=== PATIENT | female | born 1940 | race Caucasian/White ===

== ENCOUNTER → 2016-08-27 | Outpatient (CLI) | payer BC ==
[~2016-08-27] MED LIST: ASPI1TAB PO; LEVO75TA57 PO; PRV20T PO; SPIR1TAB PO
--- OUTSIDE RECORDS SUMMARY | 2016-08-27 14:54 | XMS REPORT | Continuity of Care Document ---
Author Author [facility] Organization [facility] Address Unknown Phone Unavailable Allergies Active Description Code Type Severity Reaction Onset Reported/Identified Relationship to Patient Clinical Status Yes MUCINEX MUCINEX Mild N/A 08/28/2010 Yes Penicillins [id number] Drug Allergy Unknown N/A 08/28/2010 Medications Problems Date Dx Coded Attending Type Code Diagnosis Diagnosed By 08/03/2014 JOSUÉ CALERO MD Ot V76.12 Procedures Results Encounters ACCT No. Visit Date/Time Discharge Status Pt. Type Provider Facility Loc./Unit Complaint [id number] 07/13/2014 13:46:00 2014 23:59:59 CLS Outpatient JOSUÉ CALERO MD [facility] RAD [id number] 01/10/2013 12:15:00 2012 23:59:59 CLS Outpatient [id number] 08/27/2016 15:00:00 PEN Preadmit JOSUÉ CALERO MD [facility] RAD SCREENING
--- NOTE | 2016-08-27 18:42 | Diagnostic Imaging Report ---
Digital mammogram bilateral screening. This study was compared to the prior exams of 07/13/2014, 12/03/2011, and 09/12/2010. At this time, there are no current complaints. The current study was also evaluated with a Computer Aided Detection (CAD) system. FINDINGS: The fibroglandular tissue in both breasts is heterogeneously dense. This does limit the sensitivity of this exam. Overall, there does not appear to have been any significant change when compared to the prior study. No primary or secondary sign of malignancy is noted. IMPRESSION: There is no radiographic evidence for malignancy. ACR BI-RADS Category 2: Benign findings. Result letter will be mailed to the patient. Note: At least 10% of breast cancer is not imaged by mammography. Dictated by: Dictated on workstation # [id number]
== END ==
LOC: RAD 14:51
PROVIDERS: ATTEND Internal Medicine
DX: Z12.31 Encounter for screening mammogram for malignant neoplasm of breast (principal)
CPT/HCPCS: 77067

== ENCOUNTER 2017-04-07 13:22 | Inpatient (IN) | payer BC, MEDICARE ==
[~2017-04-07] VITALS: Ht 154.9 cm; Wt 42.6 kg
[2017-04-07] MEDS ORDERED: ONDANSETRON 4 MG/2 ML (SDV) Z0FRAN ONE (13:42)
[2017-04-07] MEDS ORDERED: NS IV 1000 ML 1,000 ML ONE ×2 (13:42→19:12)
[2017-04-07] MEDS ORDERED: ASPIRIN 81 MG CHEW (CHILDREN'S ASA) PO ONE ×2 (13:45)
[2017-04-07] MEDS ORDERED: NS IV 1000 ML 1,000 ML IV ONE (13:47)
--- NOTE | 2017-04-07 13:49 | ED Abdominal Pain ---
General Chief Complaint: Abdominal/GI Problems Stated Complaint: NAUSEA/FAINT/CHEST AND STOMACH DISCOMFORT Nursing Triage Note: C/O FEELING GENERALLY UNWELL X10 DAYS WITH NAUSEA, DENIES V/D TODAY. SAW PCP YESTERDAY. STARTED ON ZOFRAN AND CIPRO. Sepsis Screen: No Definite Risk Source of Information: Patient Exam Limitations: No Limitations History of Present Illness Time Seen By Provider: 13:32 Initial Comments Here with report of 10 days of feeling weak with vomiting and occasional diarrhea. This is declining to just nausea today. Also describes of dullness in her left chest. This is been going on intermittently for a few days. Seen by provider yesterday and started on Zofran and an antibiotic. Unsure what the antibiotic was for. Overall states that she just does not feel well and wants to feel better. Timing/Duration: 1 Week, Changing Over Time, Getting Worse Severity/Quality: Moderate, Other (nausea) Location: Generalized Abdomen Radiation: No Radiation Modifying Factors: Worsens With Eating Associated Symptoms: No Back Pain, Chest Pain, No Fever/Chills, Fatigue, Nausea /Vomiting, No Shortness of Air, Weakness Allergies and Home Medications Allergies Coded Allergies: Penicillins (Unverified Allergy, Unknown, 04/07/17) Uncoded Allergies: MUCINEX (Allergy, Mild, 08/28/10) Home Medications Aspirin/Acetaminophen/Caffeine 1 Each Tablet, 2 TAB PO DAILY, (Reported) Levothyroxine Sodium 75 Mcg Tablet, 1 EACH PO DAILY, (Reported) Pravastatin Sodium 20 Mg Tablet, 1 TAB PO DAILY, (Reported) Spironolact/Hydrochlorothiazid 1 Each Tablet, 1 EACH PO DAILY, (Reported) Review of Systems Constitutional: see HPI, No chills, No fever, malaise EENTM: No Symptoms Reported Respiratory: Cough, Denies Wheezing Cardiovascular: See HPI, Chest Pain, Denies Edema Gastrointestinal: See HPI, Nausea Genitourinary: No Symptoms Reported Musculoskeletal: no symptoms reported Skin: no symptoms reported Psychiatric/Neurological: See HPI All Other Systems Reviewed Negative Unless Noted: Yes Past Kujpdhj-Kuricz-Kpycml Hx Patient Social History Alcohol Use: Denies Use Recreational Drug Use: No Smoking Status: Never a Smoker Recent Foreign Travel: No Contact w/Someone Who Travel: No Recent Infectious Disease Expo: No Recent Hopitalizations: No Surgeries History of Surgeries: Yes Surgeries: Hysterectomy Cardiovascular History of Cardiac Disorders: No Neurological History of Neurological Disord: No Gastrointestinal History of Gastrointestinal Di: No Reviewed Nursing Assessment Reviewed/Agree w Nursing PMH: Yes Family Medical History Significant Family History: No Pertinent Family Hx Physical Exam Vital Signs VS - Last 72 Hours, by Label 04/07/17 04/07/17 13:26 13:35 Temp 98.3 Pulse 83 76 77 85 Resp 16 B/P (MAP) 155/74 Pulse Ox 98 Capillary Refill : Less Than 3 Seconds General Appearance: WD/WN HEENT: PERRL/EOMI, pharynx normal Neck: full range of motion, supple Respiratory: lungs clear, normal breath sounds Cardiovascular: regular rate, rhythm, no murmur Peripheral Pulses: 2+ Dorsalis Pedis (R), 2+ Left Dors-Pedis (L), 2+ Radial Pulses (R), 2+ Radial Pulses (L) Gastrointestinal: non tender, soft Extremities: non-tender, normal inspection Back: normal inspection, no CVA tenderness, no vertebral tenderness Neurologic/Psychiatric: alert, oriented x 3 Skin: normal color, warm/dry Focused Exam Evaluation Lactate Level Laboratory Tests 04/07/17 16:45: Lactic Acid Level Laboratory Tests Test 04/07/17 16:45 Progress/Results/Core Measures Results/Orders Lab Results Laboratory Tests Test 04/07/17 13:40 04/07/17 14:45 04/07/17 16:45 Range/Units White Blood Count 5.5 4.3-11.0 10^3/uL Red Blood Count 4.46 4.35-5.85 10^6/uL Hemoglobin 13.4 11.5-16.0 G/DL Hematocrit 41 35-52 % Mean Corpuscular Volume 91 80-99 FL Mean Corpuscular Hemoglobin 30 25-34 PG Mean Corpuscular Hemoglobin Concent 33 32-36 G/DL Red Cell Distribution Width 12.9 10.0-14.5 % Platelet Count 222 130-400 10^3/uL Mean Platelet Volume 10.5 H 7.4-10.4 FL Neutrophils (%) (Auto) 50 42-75 % Lymphocytes (%) (Auto) 33 12-44 % Monocytes (%) (Auto) 14 H 0-12 % Eosinophils (%) (Auto) 1 0-10 % Basophils (%) (Auto) 3 0-10 % Neutrophils # (Auto) 2.8 1.8-7.8 X 10^3 Lymphocytes # (Auto) 1.8 1.0-4.0 X 10^3 Monocytes # (Auto) 0.8 0.0-1.0 X 10^3 Eosinophils # (Auto) 0.0 0.0-0.3 10^3/uL Basophils # (Auto) 0.2 H 0.0-0.1 10^3/uL Prothrombin Time 12.8 12.2-14.7 SEC INR Comment 1.0 0.8-1.4 Activated Partial Thromboplast Time 27 24-35 SEC D-Dimer 1.59 H 0.00-0.49 UG/ML Sodium Level 135 135-145 MMOL/L Potassium Level 4.1 3.6-5.0 MMOL/L Chloride Level 101 98-107 MMOL/L Carbon Dioxide Level 23 21-32 MMOL/L Anion Gap 11 5-14 MMOL/L Blood Urea Nitrogen 23 H 7-18 MG/DL Creatinine 0.95 0.60-1.30 MG/DL Estimat Glomerular Filtration Rate 57 BUN/Creatinine Ratio 24 Glucose Level 100 70-105 MG/DL Calcium Level 9.1 8.5-10.1 MG/DL Magnesium Level 2.1 1.8-2.4 MG/DL Total Bilirubin 0.7 0.1-1.0 MG/DL Aspartate Amino Transf (AST/SGOT) 33 5-34 U/L Alanine Aminotransferase (ALT/SGPT) 32 0-55 U/L Alkaline Phosphatase 77 40-136 U/L Myoglobin 55.4 10.0-92.0 NG/ML Troponin I < 0.30 <0.30 NG/ML Total Protein 7.4 6.4-8.2 GM/DL Albumin 4.0 3.2-4.5 GM/DL Amylase Level 52 25-125 U/L Lipase 38 8-78 U/L Urine Color YELLOW Urine Clarity CLEAR Urine pH 5 5-9 Urine Specific [place] 1.020 1.016-1.022 Urine Protein 2+ H NEGATIVE Urine Glucose (UA) NEGATIVE NEGATIVE Urine Ketones 4+ H NEGATIVE Urine Nitrite NEGATIVE NEGATIVE Urine Bilirubin NEGATIVE NEGATIVE Urine Urobilinogen 1 NORMAL MG/DL Urine Leukocyte Esterase 1+ H NEGATIVE Urine RBC (Auto) 2+ H NEGATIVE Urine RBC 0-2 /HPF Urine WBC 0-2 /HPF Urine Squamous Epithelial Cells 0-2 /HPF Urine Crystals NONE /LPF Urine Bacteria NEGATIVE /HPF Urine Casts PRESENT /LPF Urine Granular Casts 2-5 H /LPF Urine Mucus NEGATIVE /LPF Urine Culture Indicated NO My Orders Orders - ANDRIA VIVAS MD Cbc With Automated Diff (04/07/17 13:40) Magnesium (04/07/17 13:40) Chest 1 View, Ap/Pa Only (04/07/17 13:40) Ekg Tracing (04/07/17 13:40) Cardiac Profile 1 (04/07/17 13:40) Comprehensive Metabolic Panel (04/07/17 13:40) Myoglobin Serum (04/07/17 13:40) Protime With Inr (04/07/17 13:40) Partial Thromboplastin Time (04/07/17 13:40) O2 (04/07/17 13:40) Monitor-Rhythm Ecg Trace Only (04/07/17 13:40) Lipid Panel (04/08/17 06:00) Aspirin Chewable Tablet (Baby Aspirin Ch (04/07/17 13:45) Saline Lock/Iv-Start (04/07/17 13:40) Lipase (04/07/17 13:40) Amylase (04/07/17 13:40) Aspirin Chewable Tablet (Baby Aspirin Ch (04/07/17 13:45) Ns Iv 1000 Ml (Sodium Chloride 0.9%) (04/07/17 13:47) Ondansetron Injection (Zofran Injectio (04/07/17 14:00) Ns Iv 1000 Ml (Sodium Chloride 0.9%) (04/07/17 13:42) Ondansetron Injection (Zofran Injectio (04/07/17 13:42) Ua Culture If Indicated (04/07/17 14:09) Fibrin Degradation Products (04/07/17 14:33) Ct Angio Chest W (04/07/17 15:00) Iohexol Injection (Omnipaque 350 Mg/Ml 1 (04/07/17 15:15) Ns (Ivpb) (Sodium Chloride 0.9% Ivpb Bag (04/07/17 15:15) Ceftriaxone Injection (Rocephin Injectio (04/07/17 16:45) Lactic Acid Analyzer (04/07/17 16:39) Blood Culture (04/07/17 16:39) Medications Given in ED Current Medications Medications Dose Ordered Sig/Sari Route Start Time Stop Time Status Last Admin Dose Admin Aspirin 324 mg ONCE ONCE PO 04/07/17 13:45 04/07/17 13:46 DC 04/07/17 13:56 324 MG Ceftriaxone Sodium 1000 mg/ Sodium Chloride 50 ml @ 100 mls/hr ONCE ONCE IV 04/07/17 16:45 04/07/17 17:14 04/07/17 16:55 100 MLS/HR Iohexol 125 ml ONCE ONCE IV 04/07/17 15:15 04/07/17 15:16 DC 04/07/17 15:32 95 ML Ondansetron HCl 4 mg STK-MED ONCE .ROUTE 04/07/17 13:42 04/07/17 13:51 DC 04/07/17 13:56 4 MG Sodium Chloride 100 ml ONCE ONCE IV 04/07/17 15:15 04/07/17 15:16 DC 04/07/17 15:32 80 ML Sodium Chloride 1,000 ml @ ud STK-MED ONCE .ROUTE 04/07/17 13:42 04/07/17 13:51 DC 04/07/17 13:56 1,000 MLS/HR Vital Signs/I&O Vital Sign - Last 12Hours 04/07/17 04/07/17 13:26 13:35 Temp 98.3 Pulse 83 76 77 85 Resp 16 B/P (MAP) 155/74 Pulse Ox 98 Intake and Output 04/08/17 00:00 Intake Total 1000 ml Balance 1000 ml Blood Pressure Mean: 101 Progress Note : Progress Note Seen and evaluated. IV, labs, EKG and chest x-ray ordered. ASA 324 mg by mouth. Zofran 4 mg IV and normal saline 1 L bolus ordered. Monitor patient. D -dimer added. Monitor patient. D-dimer positive. CT angiogram chest ordered. This was positive for pneumonia. Given patient's recent several day bout of nausea and vomiting as well as failure of outpatient antibiotics with Levaquin, patient will require admission to the hospital. I did discuss the case with Dr. STANLEY, on-call for Dr. Alas. He accepts patient for admission, inpatient status. We will repeat cardiac enzymes overnight. We will initiate blood cultures and lactic acid in initiate Rocephin 1 g IV afterwards. All findings concerning discussed with patient who agrees with plan. ECG Initial ECG Impression Date: Apr 07, 2017 Initial ECG Impression Time: 13:49 Initial ECG Rate: 70 Initial ECG Rhythm: Normal Sinus Initial ECG Comparisson: No Previous ECG Available Comment Sinus rhythm with right atrial abnormality. Question of pericarditis due to sloping baseline. No evidence of ST elevation MS. No previous available for comparison. Interpreted by me. Diagnostic Imaging Diagonstic Imaging: Xray Plain Films/CT/US/NM/MRI: chest [facility] [place], [place] NAME: DONATO POSADAS [facility] REC#: [id number] PT STATUS: REG ER : 1940 PHYSICIAN: ANDRIA VIVAS MD ADMIT DATE: 04/07/17/ER Draft Date of Exam:04/07/17 CHEST 1 VIEW, AP/PA ONLY INDICATION: Chest pain x 5 days. EXAMINATION: Portable chest at 2:12 PM. FINDINGS: The heart size and pulmonary vascularity are normal. There is a suspected 17 mm nodule in the right mid lateral chest. There is overlapping of the right anterior fourth rib, right posterior seventh rib, scapula, and a section of tubing. It is possible the density could just be artifactual. The lungs are otherwise clear. There are no effusions or pneumothoraces. IMPRESSION: Questionable nodule in the right upper lobe. A repeat study with slightly different positioning might prove useful. Dictated on workstation # [id number] Dict: 04/07/17 1416 Trans: 04/07/17 [employer] [id number] Interpreted by: ANDRIA HELTON MD Electronically signed by: Diagonstic Imaging: CT Plain Films/CT/US/NM/MRI: chest Comments [facility] [place] [place] NAME: DONATO POSADAS [facility] REC#: [id number] PT STATUS: REG ER : 1940 PHYSICIAN: ANDRIA VIVAS MD ADMIT DATE: 04/07/17/ER Draft Date of Exam:04/07/17 CT ANGIO CHEST W PROCEDURE: CT angiography of the chest with contrast. TECHNIQUE: Multiple contiguous axial images were obtained through the chest after uneventful bolus administration of intravenous contrast. Reconstructed CTA MIP acquisitions were also performed. INDICATION: Chest pressure, started 5 days ago. 90 mL of Omnipaque 350 was administered intravenously. FINDINGS: The pulmonary arteries are well opacified with no filling defects seen to suggest pulmonary embolism. The thoracic aorta demonstrate ectasia of the ascending aorta measuring up to 3.8 cm in caliber at mid ascending level. The aortic root, the arch and the descending aorta segments appear unremarkable. No dissection. The heart size is normal. There is no pericardial or pleural effusion. There is no mediastinal lymphadenopathy. There is mildly enlarged right hilar lymph node measuring 1 cm in size. Subcentimeter nonspecific left hilar lymph node is seen. No axillary lymphadenopathy is noted. The lungs demonstrate a subsegmental area of consolidation in the lower lateral aspect of the right upper lobe, likely related to inflammatory or infectious pneumonitis. There is otherwise no significant consolidation, mass or suspicious nodule seen. There is right convexity scoliotic curvature in the thoracic spine seen. Lower thoracic spine degenerative changes are noted. Sections in the upper abdomen appear grossly unremarkable. IMPRESSION: 1. Subsegmental area of consolidation in the lateral lower aspect of the right upper lobe is likely related to infectious or inflammatory pneumonia. 2. 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 Dictated on workstation # [id number] Dict: 04/07/17 1552 Trans: 04/07/17 1612 [facility] [id number] Interpreted by: RONAK LUND MD Electronically signed by: Departure Communication (Admissions) Time/Spoke to Admitting Phy: 16:33 Impression Impression: Primary Impression: Right upper lobe pneumonia Qualified Codes: J18.1 - Lobar pneumonia, unspecified organism Additional Impressions: Chest pain Qualified Codes: R07.9 - Chest pain, unspecified Nausea and vomiting Qualified Codes: R11.2 - Nausea with vomiting, unspecified Disposition: ADMITTED INPATIENT Condition: Stable Admissions Decision to Admit Reason: Admit from ER (General) Decision to Admit/Date: Apr 07, 2017 Time/Decision to Admit Time: 16:33 Departure-Patient Inst. Referrals: JOSUÉ ALAS MD (PCP/Family) Primary Care Physician ANDRIA VIVAS MD Apr 07, 2017 13:49
[2017-04-07 13:51] LABS: BASOPHILS # (AUTO) 0.2 10^3/uL (0.0-0.1); BASOPHILS % (AUTO) 3 % (0-10); EOSINOPHILS % (AUTO) 1 % (0-10); LYMPHOCYTES # (AUTO) 1.8 X 10^3 (1.0-4.0); LYMPHOCYTES % (AUTO) 33 % (12-44); MEAN CORPUSCULAR HEMOGLOBIN 30 PG (25-34); MEAN CORPUSCULAR HGB CONC 33 G/DL (32-36); MEAN CORPUSCULAR VOLUME 91 FL (80-99); MEAN PLATELET VOLUME 10.5 FL (7.4-10.4); MONOCYTES # (AUTO) 0.8 X 10^3 (0.0-1.0); MONOCYTES % (AUTO) 14 % (0-12); NEUTROPHILS # (AUTO) 2.8 X 10^3 (1.8-7.8); NEUTROPHILS % (AUTO) 50 % (42-75); PLATELET COUNT 222 10^3/uL (130-400); RED BLOOD COUNT 4.46 10^6/uL (4.35-5.85); RED CELL DISTRIBUTION WIDTH 12.9 % (10.0-14.5); WHITE BLOOD COUNT 5.5 10^3/uL (4.3-11.0)
[2017-04-07] MEDS ORDERED: ONDANSETRON 4 MG/2 ML (SDV) Z0FRAN IVP ONE (14:00)
[2017-04-07 14:03] LABS: PROTHROMBIN TIME PATIENT 12.8 SEC (12.2-14.7)
[2017-04-07 14:12] LABS: ALANINE AMINOTRANSFERASE 32 U/L (0-55); AMYLASE 52 U/L (25-125); ANION GAP 11 MMOL/L (5-14); ASPARTATE AMINO TRANSFERASE 33 U/L (5-34); BILIRUBIN,TOTAL 0.7 MG/DL (0.1-1.0); BLOOD UREA NITROGEN 23 MG/DL (7-18); BUN/CREATININE RATIO 24; CALCIUM 9.1 MG/DL (8.5-10.1); CARBON DIOXIDE 23 MMOL/L (21-32); CHLORIDE 101 MMOL/L (98-107); CREATININE SERUM 0.95 MG/DL (0.60-1.30); GFR ESTIMATED 57; GLUCOSE 100 MG/DL (70-105); LIPASE 38 U/L (8-78); MAGNESIUM 2.1 MG/DL (1.8-2.4); POTASSIUM 4.1 MMOL/L (3.6-5.0); SODIUM 135 MMOL/L (135-145); TOTAL PROTEIN 7.4 GM/DL (6.4-8.2)
[2017-04-07 14:18] LABS: MYOGLOBIN SERUM 55.4 NG/ML (10.0-92.0)
--- NOTE | 2017-04-07 14:23 | Diagnostic Imaging Report ---
INDICATION: Chest pain x 5 days. EXAMINATION: Portable chest at 2:12 PM. FINDINGS: The heart size and pulmonary vascularity are normal. There is a suspected 17 mm nodule in the right mid lateral chest. There is overlapping of the right anterior fourth rib, right posterior seventh rib, scapula, and a section of tubing. It is possible the density could just be artifactual. The lungs are otherwise clear. There are no effusions or pneumothoraces. IMPRESSION: Questionable nodule in the right upper lobe. A repeat study with slightly different positioning might prove useful. Dictated by: Dictated on workstation # [id number]
[2017-04-07 14:58] LABS: BILIRUBIN,URINE NEGATIVE (NEGATIVE); KETONES,URINE 4+ (NEGATIVE); LEUKOCYTE ESTERASE ,URINE 1+ (NEGATIVE); NITRITE,URINE NEGATIVE (NEGATIVE); PH,URINE 5 (5-9); PROTEIN,URINE 2+ (NEGATIVE); UROBILINOGEN,URINE 1 MG/DL (NORMAL)
[2017-04-07 15:06] LABS: SQUAMOUS EPITHELIAL CELL,UR 0-2 /HPF; WBC,URINE 0-2 /HPF
[2017-04-07] MEDS ORDERED: IOHEXOL 350 MG/ML 150 ML (OMNIPAQUE 350) VIAL IV ONE (15:15)
[2017-04-07] MEDS ORDERED: NS 100 ML (IVPB) BAG IV ONE (15:15)
--- NOTE | 2017-04-07 16:12 | Diagnostic Imaging Report ---
PROCEDURE: CT angiography of the chest with contrast. TECHNIQUE: Multiple contiguous axial images were obtained through the chest after uneventful bolus administration of intravenous contrast. Reconstructed CTA MIP acquisitions were also performed. INDICATION: Chest pressure, started 5 days ago. 90 mL of Omnipaque 350 was administered intravenously. FINDINGS: The pulmonary arteries are well opacified with no filling defects seen to suggest pulmonary embolism. The thoracic aorta demonstrate ectasia of the ascending aorta measuring up to 3.8 cm in caliber at mid ascending level. The aortic root, the arch and the descending aorta segments appear unremarkable. No dissection. The heart size is normal. There is no pericardial or pleural effusion. There is no mediastinal lymphadenopathy. There is mildly enlarged right hilar lymph node measuring 1 cm in size. Subcentimeter nonspecific left hilar lymph node is seen. No axillary lymphadenopathy is noted. The lungs demonstrate a subsegmental area of consolidation in the lower lateral aspect of the right upper lobe, likely related to inflammatory or infectious pneumonitis. There is otherwise no significant consolidation, mass or suspicious nodule seen. There is right convexity scoliotic curvature in the thoracic spine seen. Lower thoracic spine degenerative changes are noted. Sections in the upper abdomen appear grossly unremarkable. IMPRESSION: 1. Subsegmental area of consolidation in the lateral lower aspect of the right upper lobe is likely related to infectious or inflammatory pneumonia. 2. 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 Dictated by: Dictated on workstation # [id number]
[2017-04-07] MEDS ORDERED: cefTRIAXone INJECTION 1,000 MG in NS (IVPB) 50 ML IV ONE (16:45)
[2017-04-07] MEDS ORDERED: NS IV 1000 ML 1,000 ML IV SCH (19:45)
[2017-04-07] MEDS ORDERED: ONDANSETRON 4 MG/2 ML (SDV) Z0FRAN IVP PRN (19:45)
[2017-04-07] MEDS ORDERED: CATHETER FLUSH 10 ML SYR IV PRN (19:45)
[2017-04-07] MEDS ORDERED: AZITHROMYCIN 500 MG/NS 250 ML IVPB IV NR ×2 (20:00)
[2017-04-07] MEDS ORDERED: INFLUENZA TRIvalent 2017-2018 0.5 ML/45 MCG SYR IM ONE (20:15)
[2017-04-07 20:53] VITALS: BP 147/72
[2017-04-07] MEDS ORDERED: CATHETER FLUSH 10 ML SYR IV SCH (22:00)
[2017-04-08 00:04] VITALS: BP 155/74
[2017-04-08 00:11] VITALS: BP 117/58
[2017-04-08] MEDS ORDERED: RT-ALBUTEROL/IPRATROPIUM 3 ML (DUONEB) VIAL INH PRN (00:15)
[2017-04-08 04:23] VITALS: BP 128/60
[2017-04-08 06:12] LABS: BASOPHILS # (AUTO) 0.1 10^3/uL (0.0-0.1); BASOPHILS % (AUTO) 3 % (0-10); EOSINOPHILS # (AUTO) 0.1 10^3/uL (0.0-0.3); EOSINOPHILS % (AUTO) 3 % (0-10); LYMPHOCYTES # (AUTO) 1.1 X 10^3 (1.0-4.0); LYMPHOCYTES % (AUTO) 36 % (12-44); MEAN CORPUSCULAR HEMOGLOBIN 30 PG (25-34); MEAN CORPUSCULAR HGB CONC 33 G/DL (32-36); MEAN CORPUSCULAR VOLUME 92 FL (80-99); MEAN PLATELET VOLUME 10.5 FL (7.4-10.4); MONOCYTES # (AUTO) 0.5 X 10^3 (0.0-1.0); MONOCYTES % (AUTO) 15 % (0-12); NEUTROPHILS # (AUTO) 1.4 X 10^3 (1.8-7.8); NEUTROPHILS % (AUTO) 44 % (42-75); PLATELET COUNT 194 10^3/uL (130-400); RED BLOOD COUNT 3.63 10^6/uL (4.35-5.85); RED CELL DISTRIBUTION WIDTH 12.8 % (10.0-14.5); WHITE BLOOD COUNT 3.1 10^3/uL (4.3-11.0)
[2017-04-08 06:30] LABS: ALANINE AMINOTRANSFERASE 23 U/L (0-55); ANION GAP 9 MMOL/L (5-14); ASPARTATE AMINO TRANSFERASE 23 U/L (5-34); BLOOD UREA NITROGEN 16 MG/DL (7-18); BUN/CREATININE RATIO 26; CARBON DIOXIDE 21 MMOL/L (21-32); CHLORIDE 109 MMOL/L (98-107); CREATININE SERUM 0.62 MG/DL (0.60-1.30); GFR ESTIMATED > 60; GLUCOSE 74 MG/DL (70-105); POTASSIUM 3.7 MMOL/L (3.6-5.0); SODIUM 139 MMOL/L (135-145); TOTAL PROTEIN 5.2 GM/DL (6.4-8.2)
[2017-04-08 06:39] LABS: BILIRUBIN,TOTAL 0.4 MG/DL (0.1-1.0)
[2017-04-08 06:43] LABS: CHOLESTEROL 125 MG/DL (< 200); DIRECT LDL 76 MG/DL (1-129); TRIGLYCERIDES 87 MG/DL (<150); VLDL CHOLESTEROL 17 MG/DL (5-40)
[2017-04-08 07:36] VITALS: BP 139/60
[2017-04-08] MEDS ORDERED: ONDA4TAB11 PO (08:05)
[2017-04-08] MEDS ORDERED: ATOR10TA66 PO (08:05)
[2017-04-08] MEDS ORDERED: SPIR25TA3 PO (08:05)
[2017-04-08] MEDS ORDERED: LEVO500T80 PO (08:05)
[2017-04-08] MEDS ORDERED: LEVO75TA PO (08:05)
[2017-04-08] MEDS: ASPIRIN 81 MG CHEW (CHILDREN'S ASA) PO SCH (08:13)
[2017-04-08] MEDS: AZITHROMYCIN 250 MG TAB (ZITHROMAX) PO SCH (08:13)
[2017-04-08] MEDS ORDERED: ACET-2267 PO (08:34)
[2017-04-08] MEDS ORDERED: ASPIRIN 81 MG CHEW (CHILDREN'S ASA) PO SCH (09:00)
--- NOTE | 2017-04-08 11:34 | History & Physical-Hospitalist ---
HPI History of Present Illness: HPI/Chief Complaint CC: Chest pain due to pleurisy and pneumonia with dizziness HPI: This is a 76-year-old white female clinic patient of Dr. Calero the presented with a variety of complaints to the emergency room including abdominal pain that ultimately ended with CT angiogram because of elevated d- dimer and chest pain episode that revealed a pneumonia without evidence of hypoxia and fever other than an upper respiratory illness for the past 10 days. She reports that she has been very dizzy the last 10 days and overall not feeling up to walking around and feeling like she was going to pass out every time she stood up. She is placed on Rocephin broad-spectrum and. 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 Source: patient Exam Limitations: no limitations Date Seen 04/08/17 Time Seen by Provider: 10:00 Attending Physician Chester Brown MD PCP Michael Calero MD Referring Physician Date of Admission Apr 07, 2017 at 18:37 Home Medications & Allergies Home Medications Reviewed patient Home Medication Reconciliation Form Allergies Allergies Coded Allergies Penicillins (Unverified Allergy, Unknown, 04/07/17) Uncoded Allergies MUCINEX ( Allergy, Mild, 08/28/10) Past Irivvzb-Fptgcd-Mubbqk Hx Patient Social History Marrital Status: Employed/Student: employed ([employer]) Alcohol Use: Denies Use Recreational Drug Use: No Smoking Status: Never a Smoker Physical Abuse Screen: No Sexual Abuse: No Recent Foreign Travel: No Contact w/other who traveled: No Recent Hopitalizations: No Recent Infectious Disease Expo: No Seasonal Allergies Seasonal Allergies: No Surgeries Yes Hysterectomy Respiratory No Cardiovascular Yes (STOPPED BP MEDS [address] CALERO) Neurological No Genitourinary No Gastrointestinal No Musculoskeletal Yes Arthritis Endocrine History of Endocrine Disorders: Yes Endocrine Disorders: Hypothyroidsim HEENT History of HEENT Disorders: No Cancer No Psychosocial History of Psychiatric Problem: No Integumentary History of Skin or Integumenta: No Blood Transfusions History of Blood Disorders: No Reviewed Nursing Assessment Reviewed/Agree w Nursing PMH: Yes Family Medical History Significant Family History: No Pertinent Family Hx Family Hx: Completed stroke G8 BROTHER FH: bipolar disorder 19 FATHER FH: ovarian cancer 19 MOTHER Myocardial infarction 19 MOTHER G8 BROTHER Psychosocial problem G8 BROTHER Tuberculosis 19 FATHER Review of Systems Constitutional: see HPI, dizziness, weakness EENTM: no symptoms reported Respiratory: cough Cardiovascular: chest pain Gastrointestinal: no symptoms reported Genitourinary: no symptoms reported Musculoskeletal: no symptoms reported Skin: no symptoms reported Psychiatric/Neurological: Anxiety All Other Systems Reviewed Negative Unless Noted: Yes Physical Exam Physical Exam Vital Signs Vital Sign - Last 12Hours 04/07/17 04/07/17 13:26 20:53 Temp 98.3 Pulse 83 Resp 16 B/P (MAP) 155/74 Pulse Ox 98 O2 Delivery Room Air Capillary Refill : Less Than 3 Seconds General Appearance: No Apparent Distress, WD/WN, Chronically ill, Thin, Other ( frail) Eyes: Bilateral Eye Normal Inspection, Bilateral Eye PERRL HEENT: PERRL/EOMI, Normal ENT Inspection, Pharynx Normal Neck: Full Range of Motion, Normal Inspection, Non Tender, Supple, Carotid Bruit Respiratory: Chest Non Tender, Lungs Clear, No Accessory Muscle Use, No Respiratory Distress, Decreased Breath Sounds Cardiovascular: Regular Rate, Rhythm, No Edema, No Gallop, No JVD, No Murmur, Normal Peripheral Pulses Gastrointestinal: Normal Bowel Sounds, No Organomegaly, No Pulsatile Mass, Non Tender, Soft Back: Normal Inspection, No CVA Tenderness, No Vertebral Tenderness Extremity: Normal Capillary Refill, Normal Inspection, Normal Range of Motion, Non Tender, No Calf Tenderness, No Pedal Edema Neurologic/Psychiatric: Alert, Oriented x3, No Motor/Sensory Deficits, Normal Mood/Affect Skin: Normal Color, Warm/Dry Lymphatic: No Adenopathy Results Results/Procedures Lab Laboratory Tests 04/07/17 13:40 04/08/17 05:45 Assessment/Plan Admission Diagnosis Assessment: Pneumonia found on CT angiogram with cough and chest pain with pleurisy Severe weakness and dizziness at high risk for falls Mild dehydration placed on IV fluids from ER Hypothyroidism History of hypertension but off meds for several years per primary care provider Chronic arthritis pain Assessment and Plan Plan: Empiric antibiotics treatment for pneumonia Oxygen when necessary Nebs Physical therapy Check labs in a.m. Hep-locked IV fluid Ambulate Clinical Quality Measures DVT/VTE Risk/Contraindication: Risk Factor Score Per Nursin RFS Level Per Nursing on Admit: 4+=Very High LAURYN GONGORA DO Apr 08, 2017 11:34
[2017-04-08 11:57] VITALS: BP 115/56
--- NOTE | 2017-04-08 15:48 | Physical Therapy Evaluation ---
PT Evaluation-General Medical Diagnosis Admission Date Apr 07, 2017 at 18:37 Medical Diagnosis: pneumonia Onset Date: Apr 07, 2017 Therapy Diagnosis Therapy Diagnosis: weakness Height/Weight Height (Feet): 5 Height (Inches): 1.00 Weight (Pounds): 94 Weight (Ounces): 0.0 Precautions Precautions/Isolations: Fall Prevention, Standard Precautions Referral Physician: Gisel Recio DO Reason for Referral: Evaluation/Treatment Medical History Pertinent Medical History: Arthritis, Hypothroidism Additional Medical History Surgery: Hyserectomy Current History Pt had been feeling weak and nauseous for about 10 days, came in to PCP, admitted for pneumonia. Reviewed History: Yes Social History Home: Multilevel Current Living Status: Significant Other Entry Into Home: Stairs With Railing PT Steps Into Home: 2 Pt lives with and is primary caregiver of with ankylosing spondylitis. Pt lives next to 2 daughters. Prior/Core FIM Prior Level of Function Functional [place] Measure 0=Not Assessed/NA 4=Minimal Assistance 1=Total Assistance 5=Supervision or Setup 2=Maximal Assistance 6=Modified [place] 3=Moderate Assistance 7=Complete [place] Bed Mobility: 7 Transfers (B,C,W/C) (FIM): 7 Gait: 7 Locomotion: 7 Working full-time at [employer], very active prior to admission PT Evaluation-Current Subjective Pt was lying in bed prior to tx and agreeable to PT. Pt reports no pain. Pt was eager to get up out of bed and walk. Pt was laying in bed with nurse call, phone , tray, all needs in reach post tx. Pain Numeric Pain Scale: 0-No Pain Location: No Pain Reported Pt/Family Goals To return home with PLOF Objective Patient Orientation: Normal For Age ROM/Strength Strenght Lower Extremities Left: (hip flexion 4/5, knee flexion 4+/5, knee extension 5/5, DF 4+/5) Right: hip flexion 5/5, knee flexion 4+/5, knee extension 5/5, DF 4+/5) Integumentary/Posture Integumentary refer to nursing note Neuromuscular (Tone, Coordination, Reflexes) not tested Sensory Vision: Wears Glasses Hearing: Functional Sensation Right Upper Extremit: Intact Sensation Left Upper Extremity: Intact Sensation Right Lower Extremit: Intact Sensation Left Lower Extremity: Intact Transfers Functional [place] Measure 0=Not Assessed/NA 4=Minimal Assistance 1=Total Assistance 5=Supervision or Setup 2=Maximal Assistance 6=Modified [place] 3=Moderate Assistance 7=Complete [place] Transfers (B, C, W/C) (FIM): 7 Scootin Rollin Supine to/from Sit: 7 Sit to/from Stand: 7 Gait Gait (FIM): 4 Distance (FIM): 3=150 ft Distance: 200' Gait Level of Assist: 1 Gait Persons Needed: 4 Gait Assistive Device: None Comments/Gait Description Pt ambulates 200' with CGA for safety and no assistive devices, does not want to use walker. Pt is steady with gait, does not become light-headed or dizzy with standing/gait. Balance Sitting Static: Normal Sitting Dynamic: Normal Standing Static: Good Standing Dynamic: Good Treatment Pt completes sitting exercises (LAQ, GS, AP, hip flexion)x15 to increase functional strengthening. Assessment/Needs Pt has decreased activity tolerance and endurance. Pt also reports left knee has given her some pain in the past, is slightly sore with exercises. Rehab Potential: Good PT Short Term Goals Short Term Goals Time Frame: Apr 15, 2017 Gait (FIM): 7 Gait Distance Comment: 450' Gait Level of Assist: 7 Gait Assistive Device: None Stairs (FIM): 6 # of Steps: 12 Stairs Level of Assist: 6 PT Plan Problem List Problem List: Activity Tolerance, Functional Strength, Safety, Balance, Gait, Transfer Treatment/Plan Treatment Plan: Continue Plan of Care Treatment Plan: Education, Functional Activity Blas, Functional Strength, Gait , Safety, Therapeutic Exercise, Transfers Treatment Duration: Apr 15, 2017 Frequency: 6 times per week Estimated Hrs Per Day: .25 hour per day (15-30') Patient and/or Family Agrees t: Yes Safety Risks/Education Patient Education: Gait Training, Transfer Techniques, Reviewed Precautions, Correct Positioning, Safety Issues Teaching Recipient: Patient Teaching Methods: Demonstration, Discussion Response to Teaching: Verbalize Understanding, Reinforcement Needed Discharge Recommendations Plan Pt will complete treatment to increase functional strength, balance, endurance, safety education, gait training and stair training. Therapy D/C Recommendations: Home w/ Family Support Time/GCodes Time In: 1525 Time Out: 1640 Total Billed Treatment Time: 15 Total Billed Treatment 1 visit 15 PEDRO RODNEY PT Apr 08, 2017 15:48
[2017-04-08 16:00] VITALS: BP 116/67
[2017-04-08] MEDS: ATORVASTATIN 10 MG (LIPITOR) TABLET PO SCH (20:21)
[2017-04-09] VITALS: BP 136/74
[2017-04-09] MEDS ORDERED: ACETAMINOPHEN 500 MG TAB (TYLENOL) ONE (03:55)
[2017-04-09] MEDS: ACETAMINOPHEN 500 MG TAB (TYLENOL) PO SCH (04:04)
[2017-04-09 04:06] VITALS: BP 145/70
[2017-04-09] MEDS: LEVOTHYROXINE 75 MCG (LEVOTHROID) TABLET PO SCH (05:45)
[2017-04-09 06:00] LABS: BASOPHILS # (AUTO) 0.1 10^3/uL (0.0-0.1); BASOPHILS % (AUTO) 3 % (0-10); EOSINOPHILS # (AUTO) 0.1 10^3/uL (0.0-0.3); EOSINOPHILS % (AUTO) 2 % (0-10); LYMPHOCYTES # (AUTO) 1.4 X 10^3 (1.0-4.0); LYMPHOCYTES % (AUTO) 42 % (12-44); MEAN CORPUSCULAR HEMOGLOBIN 31 PG (25-34); MEAN CORPUSCULAR HGB CONC 34 G/DL (32-36); MEAN CORPUSCULAR VOLUME 91 FL (80-99); MEAN PLATELET VOLUME 10.8 FL (7.4-10.4); MONOCYTES # (AUTO) 0.5 X 10^3 (0.0-1.0); MONOCYTES % (AUTO) 14 % (0-12); NEUTROPHILS # (AUTO) 1.3 X 10^3 (1.8-7.8); NEUTROPHILS % (AUTO) 39 % (42-75); PLATELET COUNT 188 10^3/uL (130-400); RED BLOOD COUNT 3.55 10^6/uL (4.35-5.85); RED CELL DISTRIBUTION WIDTH 12.9 % (10.0-14.5); WHITE BLOOD COUNT 3.3 10^3/uL (4.3-11.0)
[2017-04-09 06:24] LABS: ALANINE AMINOTRANSFERASE 22 U/L (0-55); ALBUMIN 2.9 GM/DL (3.2-4.5); ANION GAP 7 MMOL/L (5-14); ASPARTATE AMINO TRANSFERASE 29 U/L (5-34); BILIRUBIN,TOTAL 0.4 MG/DL (0.1-1.0); BLOOD UREA NITROGEN 12 MG/DL (7-18); BUN/CREATININE RATIO 19; CALCIUM 7.9 MG/DL (8.5-10.1); CARBON DIOXIDE 24 MMOL/L (21-32); CHLORIDE 107 MMOL/L (98-107); CREATININE SERUM 0.62 MG/DL (0.60-1.30); GFR ESTIMATED > 60; GLUCOSE 88 MG/DL (70-105); POTASSIUM 3.3 MMOL/L (3.6-5.0); SODIUM 138 MMOL/L (135-145); TOTAL PROTEIN 5.3 GM/DL (6.4-8.2)
[2017-04-09 08:37] VITALS: BP 101/57
--- NOTE | 2017-04-09 08:50 | Progress Note-Hospitalist ---
Subjective HPI/CC On Admission Date Seen by Provider: Apr 09, 2017 Time Seen by Provider: 08:10 CC: Chest pain due to pleurisy and pneumonia with dizziness HPI: This is a 76-year-old white female clinic patient of Dr. Calero the presented with a variety of complaints to the emergency room including abdominal pain that ultimately ended with CT angiogram because of elevated d- dimer and chest pain episode that revealed a pneumonia without evidence of hypoxia and fever other than an upper respiratory illness for the past 10 days. She reports that she has been very dizzy the last 10 days and overall not feeling up to walking around and feeling like she was going to pass out every time she stood up. She is placed on Rocephin broad-spectrum and. 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 Subjective/Events-last exam He shouldn't feeling a little better. She was able to walk without lightheadedness yesterday. Appetite is a little bit better. She did have mild night sweats and reported temperature 100.5. GI symptoms of improved significantly. It has been several days since her last bowel movement. She continues to deny any respiratory symptoms cough etc. She does have some mild chest tightness does not get worse with activity. She has been outdoors quite a bit this year she recalls one tick bite. It was performed months ago. She does report that she's had many mosquito bites and had been doing a lot of brush work on her property. Objective Exam Vital Signs Vital Sign - Last 12Hours 04/07/17 04/07/17 13:26 20:53 Temp 98.3 Pulse 83 Resp 16 B/P (MAP) 155/74 Pulse Ox 98 O2 Delivery Room Air Capillary Refill : Less Than 3 Seconds General Appearance: No Apparent Distress, Thin Neck: Full Range of Motion, Non Tender, Supple Respiratory: Chest Non Tender, Lungs Clear, Normal Breath Sounds, No Accessory Muscle Use, No Respiratory Distress Cardiovascular: Regular Rate, Rhythm, No Edema, No Gallop, No JVD, No Murmur, Normal Peripheral Pulses Gastrointestinal: Normal Bowel Sounds, No Organomegaly, No Pulsatile Mass, Non Tender, Soft Extremity: Normal Inspection, Normal Range of Motion, Non Tender, No Calf Tenderness, No Pedal Edema Neurologic/Psychiatric: Alert, Oriented x3 Results/Procedures Lab Assessment/Plan Assessment and Plan Assess & Plan/Chief Complaint 1. Infectious symptomatology but doubt bacterial pneumonia. Ehrlichiosis is in the differential but the patient has has symptoms for about 2 weeks that are getting better. I will not change her antibiotic regimen at this point but will send off appropriate tic serology. This may explain mild neutropenia and the lack of neutrophilia. Patient is clearly improving possible discharge tomorrow. JOSUÉ CALERO MD Apr 09, 2017 08:50
[2017-04-09] MEDS: ASPIRIN 81 MG CHEW (CHILDREN'S ASA) PO SCH (09:38)
[2017-04-09] MEDS: AZITHROMYCIN 250 MG TAB (ZITHROMAX) PO SCH (09:38)
--- NOTE | 2017-04-09 09:42 | Physical Therapy Daily Note ---
PT Daily Note-Current Subjective Patient agrees to PT. Pain Numeric Pain Scale: 0-No Pain Location: No Pain Reported Mental Status Patient Orientation: Normal For Age Transfers Functional [place] Measure 0=Not Assessed/NA 4=Minimal Assistance 1=Total Assistance 5=Supervision or Setup 2=Maximal Assistance 6=Modified [place] 3=Moderate Assistance 7=Complete IndependenceIRFPAI Quality Coding Scale 6 Independent with activity with or without an assistive device 5 Patient requires set up or clean up by helper. Patient completes activity by themselves 4 Supervision or touching assist (CGA). [place] provide cues , steadying assist 3 The helper provides less than half the effort to complete the activity 2 The helper provides more than half the effort to complete the activity 1 Dependent. The helper does all the effort to complete an activity 7 Patient refused to complete or attempt activity 9 The patient did not perform the activity before the current illness or injury 88 Not attempted due to Medical conditions or safety concerns Transfers (B, C, W/C) (FIM): 7 Scootin Rollin Supine to/from Sit: 7 Sit to/from Stand: 7 Bed to/from Chair: 7 Gait Training Gait (FIM): 7 Distance (FIM): 3=150 ft Distance: 800' Gait Level of Assist: 7 Gait Assistive Device: None Assessment Current Status: Excellent Progress Patient is currently at independent LOF safely with all gross motor skills. PT to dismiss patient from services secondary to independence. PT Short Term Goals Short Term Goals Time Frame: Apr 15, 2017 Gait (FIM): 7 Gait Distance Comment: 450' Gait Level of Assist: 7 Gait Assistive Device: None Stairs (FIM): 6 # of Steps: 12 Stairs Level of Assist: 6 PT Plan Treatment/Plan Treatment Plan: Discontinue PT, goals met Treatment Plan: Education, Functional Activity Blas, Functional Strength, Gait , Safety, Therapeutic Exercise, Transfers Treatment Duration: Apr 15, 2017 Frequency: 6 times per week Estimated Hrs Per Day: .25 hour per day (15-30') Patient and/or Family Agrees t: Yes Time/GCodes Time In: 920 Time Out: 930 Total Billed Treatment Time: 10 Total Billed Treatment 1 visit FA 10 min EMILI FABIAN PT Apr 09, 2017 09:42
[2017-04-09 13:00] VITALS: BP 122/74
[2017-04-09 16:18] VITALS: BP 122/74
[2017-04-09] MEDS: ATORVASTATIN 10 MG (LIPITOR) TABLET PO SCH (21:06)
[2017-04-09] MEDS ORDERED: ACETAMINOPHEN 325 MG TABLET/CAPLET (TYLENOL) PO PRN (22:15)
[2017-04-10 00:36] VITALS: BP 129/74
[2017-04-10] MEDS: LEVOTHYROXINE 75 MCG (LEVOTHROID) TABLET PO SCH (06:18)
[2017-04-10 08:00] VITALS: BP 129/64
[2017-04-10 08:01] LABS: TULAREMIA ANTIBODY <1:20
[2017-04-10] MEDS: ACETAMINOPHEN 500 MG TAB (TYLENOL) PO SCH (09:27)
[2017-04-10] MEDS: AZITHROMYCIN 250 MG TAB (ZITHROMAX) PO SCH (09:28)
[2017-04-10] MEDS: ASPIRIN 81 MG CHEW (CHILDREN'S ASA) PO SCH (09:28)
--- NOTE | 2017-04-10 12:29 | Discharge Summary-Hospitalist ---
Diagnosis/Chief Complaint Date of Admission Apr 07, 2017 at 18:37 Date of Discharge 04/10/17 Admission Diagnosis Assessment: Pneumonia found on CT angiogram with cough and chest pain with pleurisy Severe weakness and dizziness at high risk for falls Mild dehydration placed on IV fluids from ER Hypothyroidism History of hypertension but off meds for several years per primary care provider Chronic arthritis pain Discharge Diagnosis 1. Infectious symptomatology but doubt bacterial pneumonia. Ehrlichiosis is in the differential but the patient has hadsymptoms for about 2 weeks that are getting better. I will not change her antibiotic regimen at this point but will send off appropriate tic serology. This may explain mild neutropenia and the lack of neutrophilia. Patient is clearly improving possible discharge tomorrow. Discharge Summary Discharge Physical Examination Allergies: Coded Allergies: Penicillins (Unverified Allergy, Unknown, 04/07/17) Uncoded Allergies: MUCINEX (Allergy, Mild, 08/28/10) Vitals & I&Os Vital Signs Date Time Temp Pulse Resp B/P (MAP) Pulse Ox O2 Delivery O2 Flow Rate FiO2 04/10/17 08:00 97.7 61 20 129/64 95 Room Air Hospital Course Chey was admitted to the hospital started on IV fluids and Rocephin. Lightheadedness resolved energy level improved with defervesce sing fever. She is still having night sweats but MAXIMUM TEMPERATURE was 99.2 the day of her discharge. She continued to deny any respiratory symptoms and had no abnormalities noted to auscultation or percussion on physical examination. I doubt pneumonia but suspect either a viral illness or possible Ehrlichiosis. serologies are pending. Her tularemia titer was a back in less than 1/20. Sitter in the long duration of her symptoms with improvement I will not be discharging her on further antibiotic therapy will have a quick follow-up this coming Thursday. If there were any exacerbation of symptoms will likely initiate doxycycline. Labs (last 24 hrs) Microbiology 04/07/17 Blood Culture - Preliminary, Resulted No growth Discharge Home Medications: Active Scripts Active Reported Tylenol Extra Strength (Acetaminophen) 500 Mg Tablet 500 Mg PO DAILY Atorvastatin Calcium 10 Mg Tablet 10 Mg PO HS Synthroid (Levothyroxine Sodium) 75 Mcg Tablet 75 Mcg PO DAILY Instructions to patient/family Please see electronic discharge instructions given to patient. Clinical Quality Measures DVT/VTE Risk/Contraindication: Risk Factor Score Per Nursin RFS Level Per Nursing on Admit: 4+=Very High Copy Copies To 2: JOSUÉ CALERO MD, MARK D MD Apr 10, 2017 12:29
[2017-04-10 13:02] LABS: EHRLICHIA CHAFFEENSIS G ABY 1:32 (<1:16)
[2017-04-10 14:46] LABS: IGG ROCKY MOUNTAIN SPOTTED FEV <1:16 (<1:16); IGM ROCKY MOUNTAIN SPOTTED FEV <1:10 (<1:10)
--- NOTE | 2017-04-13 15:21 | Physician Query Clarification ---
PQ-Further Specificity Admission/Discharge Admission Date: Apr 07, 2017 at 18:37 Discharge Date: Apr 10, 2017 at 13:05 The medical record reflects the following clinical scenario: History/Risk Factors: Hypothyroidism Clinical Findings: weakness, dizzy, cough, chest pain, fever, E chaffeenis 1:32 Treatment: Azithromycin, Ceftriaxone Question: Can you further specify Infectious symptomatology but doubt bacterial pneumonia. Ehrlichiosis is in the differential per the clinical indicators above? Please document below. 1. E. chaffeenis 2. Infectious pneumonia 3. Other, with explanation of the clinical findings. 4. Clinically undetermined, no explanation for the clinical findings. PHYSICIAN RESPONSE Can you specify per above: 1 In responding to this query, please exercise your independent professional judgment. The purpose of this communication is to more accurately reflect the complexity of your patients condition. The fact that a question is asked does not imply that any particular answer is desired or expected. Thank you for your timely response to this clarification. Requestors name: Brandon THIS PHYSICIAN QUERY FORM IS A PERMANENT PART OF THE MEDICAL RECORD BRANDON LOMAX Apr 13, 2017 15:21 JOSUÉ CALERO MD Apr 14, 2017 11:17
== END 2017-04-10 13:05 | disposition home or self-care (01) | DRG 869 ==
LOC: EDUNIT# 13:22 → ER 13:24 → UNDOADMOB 18:29 → 4TH 18:29
PROVIDERS: ADMIT Internal Medicine; ATTEND Internal Medicine
DX: A77.41 Ehrlichiosis chaffeensis [E. chaffeensis] (principal); E86.0 Dehydration; E03.9 Hypothyroidism, unspecified
CPT/HCPCS: 36415; 71010; 71275; 80053; 80061; 81000; 82150; 83605; 83690; 83735; 83874; 84484; 85025; 85379; 85610; 85730; 86666; 86668; 86757; 87040; 93005; 93041; 94760; 96365; 96375

== ENCOUNTER → 2017-08-12 | Outpatient (CLI) | payer BC ==
[~2017-08-12] MED LIST changes: +ACET-2267 PO; +ATOR10TA66 PO; +LEVO500T80 PO; +LEVO75TA PO; +ONDA4TAB11 PO; +SPIR25TA3 PO
[2017-08-12 16:22] LABS: BASOPHILS # (AUTO) 0.1 10^3/uL (0.0-0.1); BASOPHILS % (AUTO) 1 % (0-10); EOSINOPHILS # (AUTO) 0.1 10^3/uL (0.0-0.3); EOSINOPHILS % (AUTO) 1 % (0-10); HEMATOCRIT 42 % (35-52); LYMPHOCYTES # (AUTO) 1.2 X 10^3 (1.0-4.0); LYMPHOCYTES % (AUTO) 15 % (12-44); MEAN CORPUSCULAR HEMOGLOBIN 30 PG (25-34); MEAN CORPUSCULAR HGB CONC 33 G/DL (32-36); MEAN CORPUSCULAR VOLUME 91 FL (80-99); MEAN PLATELET VOLUME 10.2 FL (7.4-10.4); MONOCYTES # (AUTO) 0.8 X 10^3 (0.0-1.0); MONOCYTES % (AUTO) 9 % (0-12); NEUTROPHILS # (AUTO) 6.3 X 10^3 (1.8-7.8); NEUTROPHILS % (AUTO) 75 % (42-75); PLATELET COUNT 245 10^3/uL (130-400); RED CELL DISTRIBUTION WIDTH 13.2 % (10.0-14.5); WHITE BLOOD COUNT 8.4 10^3/uL (4.3-11.0)
[2017-08-12 16:32] LABS: BUN/CREATININE RATIO 20; CALCIUM 9.7 MG/DL (8.5-10.1); CARBON DIOXIDE 25 MMOL/L (21-32); CHLORIDE 101 MMOL/L (98-107); CREATININE SERUM 0.82 MG/DL (0.60-1.30); GFR ESTIMATED > 60; GLUCOSE 99 MG/DL (70-105); POTASSIUM 3.9 MMOL/L (3.6-5.0); SODIUM 140 MMOL/L (135-145)
== END ==
LOC: LAB 15:38
PROVIDERS: ATTEND Internal Medicine
DX: R04.2 Hemoptysis (principal); R07.9 Chest pain, unspecified; R06.02 Shortness of breath
CPT/HCPCS: 36415; 80048; 85025

== ENCOUNTER → 2017-08-13 | Outpatient (CLI) | payer BC ==
[~2017-08-13] MED LIST changes: +OSEL30CA PO
== END ==
LOC: LAB 09:50
PROVIDERS: ATTEND Internal Medicine
DX: R04.2 Hemoptysis (principal); R07.9 Chest pain, unspecified; R06.02 Shortness of breath
CPT/HCPCS: 87070; 87116; 87205; 87804

== ENCOUNTER → 2017-08-14 | Outpatient (CLI) | payer BC, MEDICARE ==
[~2017-08-14] MED LIST changes: +CATHETER FLUSH 10 ML SYR IV PRN; +IOHEXOL 350 MG/ML 100 ML (OMNIPAQUE 350) VIAL IV ONE; +IOHEXOL 350 MG/ML 150 ML (OMNIPAQUE 350) VIAL IV ONE; +NS 250 ML (IVPB) BAG IV ONE; -OSEL30CA PO
--- NOTE | 2017-08-14 11:07 | Diagnostic Imaging Report ---
PROCEDURE: CT angiography of the chest with contrast. TECHNIQUE: Multiple contiguous axial images were obtained through the chest after uneventful bolus administration of intravenous contrast. Reconstructed CTA MIP acquisitions were also performed. INDICATION: Shortness of breath. COMPARISON: 04/07/2017 FINDINGS: There is mild cardiac enlargement with coronary artery disease. The pulmonary arteries and aorta grossly are normal. There is no aneurysm, dissection or pulmonary embolism. There is some slight diffuse thickening of the esophagus. This could be inflammatory. There is no lymphadenopathy, pleural or pericardial effusion. There is consolidation infiltrate in the right upper lobe, right middle lobe. The left lung is clear. There is no obvious mass or nodule. Osseous structures are age-appropriate. Visualized upper abdominal solid organs are grossly unremarkable. IMPRESSION: 1. No pulmonary embolism or acute aortic pathology. 2. Cardiac enlargement with coronary artery disease. 3. Consolidation infiltrate in the right upper lobe and right middle lobe. This likely represents pneumonia. Followup recommended to assure resolution. Dictated by: Dictated on workstation # [id number]
== END ==
LOC: RAD 09:51
PROVIDERS: ATTEND Internal Medicine
DX: I25.10 Atherosclerotic heart disease of native coronary artery without angina pectoris (principal); I51.7 Cardiomegaly; R91.8 Other nonspecific abnormal finding of lung field
CPT/HCPCS: 71275

== ENCOUNTER 2017-08-19 07:00 | Outpatient (RCR) | payer BC ==
[~2017-08-19 07:00] MED LIST changes: -CATHETER FLUSH 10 ML SYR IV PRN; -IOHEXOL 350 MG/ML 100 ML (OMNIPAQUE 350) VIAL IV ONE; -IOHEXOL 350 MG/ML 150 ML (OMNIPAQUE 350) VIAL IV ONE; -NS 250 ML (IVPB) BAG IV ONE
[2017-08-26] MEDS ORDERED: OSEL30CA PO (14:24)
== END 2017-11-17 | disposition home or self-care (01) ==
LOC: LAB 07:00 → EDSTATUS 14:56
PROVIDERS: ATTEND Internal Medicine
DX: J18.9 Pneumonia, unspecified organism (principal)
CPT/HCPCS: 87070; 87205

== ENCOUNTER 2017-08-26 11:57 | Emergency (ER) | payer BC ==
[~2017-08-26] VITALS: Ht 154.9 cm; Wt 42.6 kg
[2017-08-26] MEDS ORDERED: NS IV 1000 ML 1,000 ML IV ONE (12:38)
[2017-08-26 12:46] LABS: BASOPHILS % (AUTO) 1 % (0-10); EOSINOPHILS % (AUTO) 0 % (0-10); HEMATOCRIT 46 % (35-52); HEMOGLOBIN 15.7 G/DL (11.5-16.0); LYMPHOCYTES # (AUTO) 1.8 X 10^3 (1.0-4.0); LYMPHOCYTES % (AUTO) 47 % (12-44); MEAN CORPUSCULAR HEMOGLOBIN 30 PG (25-34); MEAN CORPUSCULAR HGB CONC 34 G/DL (32-36); MEAN CORPUSCULAR VOLUME 89 FL (80-99); MEAN PLATELET VOLUME 10.9 FL (7.4-10.4); MONOCYTES # (AUTO) 0.7 X 10^3 (0.0-1.0); MONOCYTES % (AUTO) 17 % (0-12); NEUTROPHILS # (AUTO) 1.4 X 10^3 (1.8-7.8); NEUTROPHILS % (AUTO) 35 % (42-75); PLATELET COUNT 248 10^3/uL (130-400); RED BLOOD COUNT 5.21 10^6/uL (4.35-5.85); RED CELL DISTRIBUTION WIDTH 13.9 % (10.0-14.5); WHITE BLOOD COUNT 3.9 10^3/uL (4.3-11.0)
--- NOTE | 2017-08-26 12:47 | ED Respiratory ---
General Chief Complaint: Respiratory Problems Stated Complaint: ASHEN WESTON FACE,SWOLLEN FACE,NOT EATING OR DRINKIN Nursing Triage Note: PT CO NOT GETTING OVER PN[facility] IN J[place], STATES VERY WEAK HAS NO ENERGY. PT VERY PALE AT THIS X Source: patient, family Exam Limitations: no limitations History of Present Illness Date Seen by Provider: Aug 26, 2017 Time Seen by Provider: 12:29 Initial Comments Here with report of increasing weakness, decreased urination, decreased intake of fluids and food and concerns about pneumonia. Patient states that she had pneumonia last month and it switched from the low side of the right side. She' s been on antibiotics but hasn't really gotten much better. Apparently she had early ecchymosis last year with involvement of the lung including a lung collapsed. Currently denies nausea or vomiting but does have decreased appetite. He did have normal bowel movement this morning. Timing/Duration: week, getting worse Severity: moderate Prior Episodes/Possible Cause: occasional episodes Modifying Factors: Worse With Activity, Worse With Coughing, Improves With Rest Associated Symptoms: chest pain/soreness, dizziness, No facial pain, No fever/ chills, shortness of breath, No wheezing Allergies and Home Medications Allergies Coded Allergies: Penicillins (Unverified Allergy, Unknown, 04/07/17) Uncoded Allergies: MUCINEX (Allergy, Mild, 08/28/10) Home Medications Acetaminophen 500 Mg Tablet, 500 MG PO DAILY, (Reported) Atorvastatin Calcium 10 Mg Tablet, 10 MG PO HS, (Reported) Levothyroxine Sodium 75 Mcg Tablet, 75 MCG PO DAILY, (Reported) Constitutional: see HPI, No chills, No fever Respiratory: cough, short of breath, No wheezing Cardiovascular: see HPI, chest pain, No edema Gastrointestinal: No diarrhea, loss of appetite, nausea, No vomiting Genitourinary: decreased output, No dysuria Musculoskeletal: back pain, muscle pain, muscle weakness Skin: no symptoms reported All Other Systems Reviewed Negative Unless Noted: Yes Past Mfwtxif-Dkgvnn-Jxrzue Hx Patient Social History Alcohol Use: Denies Use Recreational Drug Use: No Smoking Status: Never a Smoker Recent Foreign Travel: No Contact w/Someone Who Travel: No Recent Infectious Disease Expo: No Recent Hopitalizations: Yes ([facility]) Physical Abuse: No Sexual Abuse: No Immunizations Up To Date Date of Pneumonia Vaccine: Jul 03, 2017 Date of Influenza Vaccine: May 06, 2017 Seasonal Allergies Seasonal Allergies: No Surgeries History of Surgeries: Yes Surgeries: Hysterectomy Respiratory History of Respiratory Disorde: No Cardiovascular History of Cardiac Disorders: No Neurological History of Neurological Disord: No Reproductive System LATHE SET UP PERSON History: Hysterectomy Genitourinary History of Genitourinary Disor: No Gastrointestinal History of Gastrointestinal Di: No Musculoskeletal History of Musculoskeletal Dis: Yes Musculoskeletal Disorders: Arthritis Endocrine History of Endocrine Disorders: Yes Endocrine Disorders: Hypothyroidsim HEENT History of HEENT Disorders: No Cancer History of Cancer: No Psychosocial History of Psychiatric Problem: No Suicide Risk Score: 0 Integumentary History of Skin or Integumenta: No Blood Transfusions History of Blood Disorders: No Reviewed Nursing Assessment Reviewed/Agree w Nursing PMH: Yes Family Medical History Significant Family History: No Pertinent Family Hx Family Medial History: Completed stroke G8 BROTHER FH: bipolar disorder 19 FATHER FH: ovarian cancer 19 MOTHER Myocardial infarction 19 MOTHER G8 BROTHER Psychosocial problem G8 BROTHER Tuberculosis 19 FATHER Physical Exam Vital Signs Vital Signs - First Documented 08/26/17 12:00 Temp 96.8 Pulse 88 Resp 23 B/P (MAP) 130/66 (87) Pulse Ox 97 Capillary Refill : Less Than 3 Seconds General Appearance: WD/WN, no apparent distress, thin HEENT: PERRL/EOMI, pharynx normal Neck: full range of motion, supple Respiratory: no respiratory distress, no accessory muscle use, crackles (right base) Cardiovascular: regular rate, rhythm, no murmur Gastrointestinal: non tender, soft Extremities: non-tender, no pedal edema, no calf tenderness Neurologic/Psychiatric: alert, normal mood/affect Skin: normal color, warm/dry Focused Exam Evaluation Lactate Level Laboratory Tests 08/26/17 12:10: Lactic Acid Level 1.72 Lactic Acid Level Laboratory Tests Test 08/26/17 12:10 Lactic Acid Level 1.72 MMOL/L (0.50-2.00) Progress/Results/Core Measures Suspected Sepsis Recent Fever Within 48 Hours: No Infection Criteria Present: None New/Unexplained Altered Menta: No Sepsis Screen: No Definite Risk Sepsis Diagnosis: SIRS Temperature:96.8 Pulse: 88 Respiratory Rate: 23 Laboratory Tests 08/26/17 12:10: White Blood Count 3.9L Blood Pressure 130 /66 Mean: 87 Laboratory Tests 08/26/17 12:10: Lactic Acid Level 1.72 Laboratory Tests 08/26/17 12:10: Creatinine 1.16, INR Comment 0.9, Platelet Count 248, Total Bilirubin 0.3 Results/Orders Lab Results Laboratory Tests Test 08/26/17 12:10 08/26/17 13:54 Range/Units White Blood Count 3.9 L 4.3-11.0 10^3/uL Red Blood Count 5.21 4.35-5.85 10^6/uL Hemoglobin 15.7 11.5-16.0 G/DL Hematocrit 46 35-52 % Mean Corpuscular Volume 89 80-99 FL Mean Corpuscular Hemoglobin 30 25-34 PG Mean Corpuscular Hemoglobin Concent 34 32-36 G/DL Red Cell Distribution Width 13.9 10.0-14.5 % Platelet Count 248 130-400 10^3/uL Mean Platelet Volume 10.9 H 7.4-10.4 FL Neutrophils (%) (Auto) 35 L 42-75 % Lymphocytes (%) (Auto) 47 H 12-44 % Monocytes (%) (Auto) 17 H 0-12 % Eosinophils (%) (Auto) 0 0-10 % Basophils (%) (Auto) 1 0-10 % Neutrophils # (Auto) 1.4 L 1.8-7.8 X 10^3 Lymphocytes # (Auto) 1.8 1.0-4.0 X 10^3 Monocytes # (Auto) 0.7 0.0-1.0 X 10^3 Eosinophils # (Auto) 0.0 0.0-0.3 10^3/uL Basophils # (Auto) 0.0 0.0-0.1 10^3/uL Prothrombin Time 12.4 12.2-14.7 SEC INR Comment 0.9 0.8-1.4 Activated Partial Thromboplast Time 31 24-35 SEC Sodium Level 137 135-145 MMOL/L Potassium Level 4.0 3.6-5.0 MMOL/L Chloride Level 99 98-107 MMOL/L Carbon Dioxide Level 21 21-32 MMOL/L Anion Gap 17 H 5-14 MMOL/L Blood Urea Nitrogen 29 H 7-18 MG/DL Creatinine 1.16 0.60-1.30 MG/DL Estimat Glomerular Filtration Rate 45 BUN/Creatinine Ratio 25 Glucose Level 94 70-105 MG/DL Lactic Acid Level 1.72 0.50-2.00 MMOL/L Calcium Level 9.3 8.5-10.1 MG/DL Total Bilirubin 0.3 0.1-1.0 MG/DL Aspartate Amino Transf (AST/SGOT) 41 H 5-34 U/L Alanine Aminotransferase (ALT/SGPT) 23 0-55 U/L Alkaline Phosphatase 91 40-136 U/L Total Protein 8.0 6.4-8.2 GM/DL Albumin 4.3 3.2-4.5 GM/DL TSH [place] Testing 0.45 0.35-4.94 UIU/ML Urine Color YELLOW Urine Clarity SLIGHTLY CLOUDY Urine pH 5 5-9 Urine Specific [place] 1.025 H 1.016-1.022 Urine Protein 2+ H NEGATIVE Urine Glucose (UA) NEGATIVE NEGATIVE Urine Ketones 3+ H NEGATIVE Urine Nitrite NEGATIVE NEGATIVE Urine Bilirubin NEGATIVE NEGATIVE Urine Urobilinogen NORMAL NORMAL MG/DL Urine Leukocyte Esterase NEGATIVE NEGATIVE Urine RBC (Auto) 2+ H NEGATIVE Urine RBC NONE /HPF Urine WBC RARE /HPF Urine Squamous Epithelial Cells 10-25 H /HPF Urine Crystals NONE /LPF Urine Bacteria TRACE /HPF Urine Casts PRESENT /LPF Urine Hyaline Casts 5-10 H /LPF Urine Mucus NEGATIVE /LPF Urine Culture Indicated NO Micro Results Microbiology 08/26/17 Influenza Types A,B Antigen (MICHAEL) - Final, Complete My Orders Orders - ANDRIA VIVAS MD Cbc With Automated Diff (08/26/17 12:38) Comprehensive Metabolic Panel (08/26/17 12:38) Lactic Acid Analyzer (08/26/17 12:38) Blood Culture (08/26/17 12:38) Sputum Culture (08/26/17 12:38) Ua Culture If Indicated (08/26/17 12:38) Protime With Inr (08/26/17 12:38) Partial Thromboplastin Time (08/26/17 12:38) Chest 1 View, Ap/Pa Only (08/26/17 12:38) O2 (08/26/17 12:38) Saline Lock/Iv-Start (08/26/17 12:38) Saline Lock/Iv-Start (08/26/17 12:38) Vital Signs Adult Sepsis Patie Q1H (08/26/17 12:38) Remove Rings In Anticipation O (08/26/17 12:38) Influenza A And B Antigens (08/26/17 12:38) Thyroid Analyzer (08/26/17 12:38) Saline Lock/Iv-Start (08/26/17 12:38) Ns Iv 1000 Ml (Sodium Chloride 0.9%) (08/26/17 12:38) Ekg Tracing (08/26/17 12:47) Troponin I (08/26/17 12:47) Medications Given in ED Current Medications Medications Dose Ordered Sig/Sari Route Start Time Stop Time Status Last Admin Dose Admin Sodium Chloride 1,000 ml @ 0 mls/hr Q0M ONCE IV 08/26/17 12:38 08/26/17 12:41 DC 08/26/17 12:45 1,000 MLS/HR Vital Signs/I&O Vital Sign - Last 12Hours 08/26/17 12:00 Temp 96.8 Pulse 88 Resp 23 B/P (MAP) 130/66 (87) Pulse Ox 97 Capillary Refill : Less Than 3 Seconds Blood Pressure Mean: 87 Progress Note : Progress Note Seen and evaluated. IV, labs, UA, chest x-ray, EKG, normal saline 1 L bolus ordered. We'll get blood cultures, lactic acid and influenza screen as well. Monitor patient. 1420: Influenza a positive. UA would indicate some dehydration and she is getting fluid replacement currently. She does look a little better now. X-ray does not show pneumonia currently. She is on antibiotics. Discharged home with return precautions. Patient verbalize understanding instructions and agreement with plan. I did talk with her about her need to increase her fluids to prevent dehydration. She verbalizes understanding and agreement. Diagnostic Imaging Diagonstic Imaging: Xray Plain Films/CT/US/NM/MRI: chest Comments VIA [facility]. [place], [place] NAME: DONATO POSADAS [facility] REC#: [id number] PT STATUS: REG ER : 1940 PHYSICIAN: ANDRIA VIVAS MD ADMIT DATE: 08/26/17/ER Draft Date of Exam:08/26/17 CHEST 1 VIEW, AP/PA ONLY INDICATION: Pneumonia. Weakness. Pallor. COMPARISON: 04/07/2017. FINDINGS: Single frontal view of the chest demonstrates normal heart size and pulmonary vascularity. The lungs are hyperinflated, but are otherwise clear. No large pleural effusion or pneumothorax is seen. The visualized osseous structures show no acute abnormalities. IMPRESSION: 1. No acute cardiopulmonary process. 2. Background of COPD. Dictated on workstation # [id number] Dict: 08/26/17 1318 Trans: 08/26/17 1325 [id number] Interpreted by: PETER GREGORY MD Electronically signed by: Departure Impression Impression: Primary Impression: Influenza A Additional Impression: Dehydration Disposition: 01 HOME, SELF-CARE Condition: Stable Departure-Patient Inst. Decision time for Depature: 14:24 Referrals: JOSUÉ CALERO MD (PCP/Family) Primary Care Physician Patient Instructions: Flu, Adult (DC) Add. Discharge Instructions: All discharge instructions reviewed with patient and/or family. Voiced understanding. Take medications as directed. Follow-up with your Dr. in a few days for recheck. Return for worse pain, fever, vomiting, weakness, breathing problems or other concerns as needed. Drink plenty of fluids. You may take Tylenol 1000 mg every 8 hours as needed for pain. You may take ibuprofen 400 mg every 8 hours as needed for pain. Scripts Oseltamivir Phosphate (Tamiflu) 30 Mg Capsule 30 MG PO BID, #10 CAP 0 Refills Prov: ANDRIA VIVAS MD 08/26/17 ANDRIA IVVAS MD Aug 26, 2017 12:47
[2017-08-26 12:51] LABS: INR 0.9 (0.8-1.4); PROTHROMBIN TIME PATIENT 12.4 SEC (12.2-14.7)
[2017-08-26 12:58] LABS: ALBUMIN 4.3 GM/DL (3.2-4.5); BILIRUBIN,TOTAL 0.3 MG/DL (0.1-1.0); CALCIUM 9.3 MG/DL (8.5-10.1); CREATININE SERUM 1.16 MG/DL (0.60-1.30)
[2017-08-26 13:18] LABS: TSH (THYROID ANALYZER) 0.45 UIU/ML (0.35-4.94)
--- NOTE | 2017-08-26 13:25 | Diagnostic Imaging Report ---
INDICATION: Pneumonia. Weakness. Pallor. COMPARISON: 04/07/2017. FINDINGS: Single frontal view of the chest demonstrates normal heart size and pulmonary vascularity. The lungs are hyperinflated, but are otherwise clear. No large pleural effusion or pneumothorax is seen. The visualized osseous structures show no acute abnormalities. IMPRESSION: 1. No acute cardiopulmonary process. 2. Background of COPD. Dictated by: Dictated on workstation # [id number]
[2017-08-26 13:58] LABS: BILIRUBIN,URINE NEGATIVE (NEGATIVE); CLARITY,URINE SLIGHTLY CLOUDY; COLOR,URINE YELLOW; GLUCOSE, URINE (UA) NEGATIVE (NEGATIVE); KETONES,URINE 3+ (NEGATIVE); LEUKOCYTE ESTERASE ,URINE NEGATIVE (NEGATIVE); NITRITE,URINE NEGATIVE (NEGATIVE); PH,URINE 5 (5-9); PROTEIN,URINE 2+ (NEGATIVE); UROBILINOGEN,URINE NORMAL (NORMAL)
[2017-08-26 14:10] LABS: BACTERIA,URINE TRACE /HPF; WBC,URINE RARE /HPF
[2017-08-26] MEDS ORDERED: OSEL30CA PO (14:24)
[2017-08-26 15:01] VITALS: BP 130/66
== END 2017-08-26 15:01 | disposition home or self-care (01) ==
LOC: EDUNIT# 11:57 → ER 11:59
DX: J10.1 Influenza due to other identified influenza virus with other respiratory manifestations (principal); E86.0 Dehydration; E03.9 Hypothyroidism, unspecified; Z88.0 Allergy status to penicillin; Z80.41 Family history of malignant neoplasm of ovary; Z82.49 Family history of ischemic heart disease and other diseases of the circulatory system; Z88.8 Allergy status to other drugs, medicaments and biological substances; Z90.710 Acquired absence of both cervix and uterus
CPT/HCPCS: 36415; 71045; 80053; 81000; 83605; 84443; 84484; 85025; 85610; 85730; 87040; 87804; 93005

== ENCOUNTER → 2017-09-22 | Outpatient (CLI) | payer BC ==
[~2017-09-22] MED LIST changes: +OSEL30CA PO
--- NOTE | 2017-09-22 13:23 | Diagnostic Imaging Report ---
INDICATION: Followup pneumonia. TIME OF EXAM: 1:10 p.m. Correlation is made with prior study from 08/26/2017. The heart size is normal. There is right convexity thoracic scoliotic curvature. Lungs are hyperinflated consistent with COPD. There is some mild density identified in the medial right base partially obscuring the right heart border suggestive of some mild right middle lobe pneumonia or atelectasis. Otherwise the lungs are clear. No effusion is seen. There is no pneumothorax. IMPRESSION: Findings suggestive of mild right middle lobe atelectasis or pneumonia. Dictated by: Dictated on workstation # [id number]
== END ==
LOC: RAD 12:40
PROVIDERS: ATTEND Internal Medicine
DX: J18.1 Lobar pneumonia, unspecified organism (principal)
CPT/HCPCS: 71046

== ENCOUNTER → 2017-11-11 | Outpatient (CLI) | payer BC ==
--- NOTE | 2017-11-11 15:58 | Diagnostic Imaging Report ---
INDICATION: UNINTENDED WEIGHT LOSS, PNEUMONIA, HEMOPTYSIS COMPARISON: 09/22/2017 FINDINGS: Frontal and lateral views of the chest demonstrate normal heart size and pulmonary vascularity. The lungs are clear. There are no signs of infiltrate, pleural effusions or pneumothoraces. The visualized osseous structures show no acute abnormalities. IMPRESSION: 1. No acute process. No signs of infiltrates, effusions or pneumothoraces. Dictated by: Dictated on workstation # [id number]
== END ==
LOC: RAD 15:14
PROVIDERS: ATTEND Nurse Practitioner Family
DX: J18.9 Pneumonia, unspecified organism (principal); R63.4 Abnormal weight loss; R04.2 Hemoptysis
CPT/HCPCS: 71046

== ENCOUNTER → 2019-04-14 | Outpatient (CLI) | payer BC ==
[~2019-04-14] MED LIST changes: -SPIR25TA3 PO; +SPIR25TA5 PO
--- NOTE | 2019-04-15 10:54 | Diagnostic Imaging Report ---
INDICATION: Routine screening. Comparison is made with prior mammogram from 08/27/2016 and 07/13/2014. 2-D and 3-D bilateral screening mammography was performed with CAD. Both breasts are heterogeneously dense, limiting the sensitivity of mammography. The parenchymal pattern is stable. No mass or malignant-appearing microcalcifications are seen. The axillae are unremarkable. IMPRESSION: BI-RADS Category 1 No mammographic features suspicious for malignancy are identified. ACR BI-RADS Category 1: Negative. Result letter will be mailed to the patient. Note: At least 10% of breast cancer is not imaged by mammography. Dictated by: Dictated on workstation # [id number]
== END ==
LOC: RAD 15:11
PROVIDERS: ATTEND Internal Medicine
DX: Z12.31 Encounter for screening mammogram for malignant neoplasm of breast (principal)
CPT/HCPCS: 77067

== ENCOUNTER 2020-01-20 10:25 | Outpatient (RCR) | payer BC ==
[~2020-01-20] VITALS: Ht 154 cm; Wt 41.8 kg
== END 2020-01-23 11:00 | disposition home or self-care (01) ==
LOC: PREOP 10:25
PROVIDERS: ATTEND Internal Medicine
DX: Z01.818 Encounter for other preprocedural examination (principal)

== ENCOUNTER → 2020-01-23 | Outpatient (CLI) | payer BC | LOC: LABNPT 08:15 | PROVIDERS: ATTEND Internal Medicine | DX: R10.32 Left lower quadrant pain (principal); R63.4 Abnormal weight loss; Z20.828 Contact with and (suspected) exposure to other viral communicable diseases | CPT/HCPCS: 87635 ==

== ENCOUNTER 2020-01-27 07:07 | Day surgery (SDC) | payer BC ==
--- NOTE | 2020-01-19 01:38 | HISTORY AND PHYSICAL ---
DATE OF SERVICE: COLONOSCOPY HISTORY AND PHYSICAL HISTORY OF PRESENT ILLNESS: The patient is a 79-year-old white female, who presented to the office on 01/16/2020 reporting about a 2-month history of left lower quadrant abdominal pain. It is worse several hours after meals. She has noted no blood in her stool. Does report some mild sensation of abdominal distention after meals without nausea. She has had no melena or bright red blood per rectum. She reports she does have a negative impact on her diet. She has maintained her weight at 93 pounds, but she has lost 5 pounds compared to more typical weights one year ago. She also reports a crusting lesion on her nose, it scales off and does not bleed, as she will tend to pick it off and then crusting will return. PAST SURGICAL HISTORY: Significant for total abdominal hysterectomy for benign reasons in the past. She has had no other abdominal surgery. PAST MEDICAL HISTORY: Significant for hypertension for which due to likely weight loss, she has not required any therapy for other than the spironolactone 25 mg daily. She has a history of hyperlipidemia, on atorvastatin 10 mg daily with no known history of cardiovascular disease. 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 FAMILY HISTORY: She is not aware of any family history for colon cancer. PHYSICAL EXAMINATION: GENERAL: Reveals a white female, thin, did not appear to be in acute distress. VITAL SIGNS: BMI 19. Weight 93, blood pressure 130/86. HEENT: Unremarkable except she does have a lesion on the tip of her nose suspicious for basal cell versus squamous cell from an AK. No other suspicious skin findings were noted. CHEST: Clear to auscultation. CARDIOVASCULAR: Revealed a regular rate and rhythm without murmur, S3 or S4. ABDOMEN: Soft, supple without mass or organomegaly. Left lower quadrant discomfort to palpation was present without rebound or guarding. No bruits are noted. ASSESSMENT: For further evaluation of left lower quadrant abdominal pain and weight loss, the patient was set up for diagnostic colonoscopy. We did obtain a chemistry panel that revealed no significant abnormalities and a CBC also unremarkable with hemoglobin of 13.5, white count was 5.7 with a normal differential. Prep instructions and Suprep kit were given and questions were answered. Followup appointment in 4 months was made. Job ID: [id number] DocumentID: [id number] Dictated Date: 01/18/2020 16:18:57 Chicken Cleaner Date: 01/19/2020 00:39:42 Dictated By: JOSUÉ CALERO MD
[~2020-01-27] VITALS: Ht 154 cm; Wt 41.8 kg
[~2020-01-27 07:07] MED LIST changes: +LACTATED RINGERS 1,000 ML IV ONE
[2020-01-27] MEDS ORDERED: LACTATED RINGERS 1,000 ML IV STA (07:10)
[2020-01-27] MEDS ORDERED: LIDOCAINE JELLY 2% 6 ML SYRINGE MM PRN (07:15)
[2020-01-27] MEDS ORDERED: PROPOFOL INJECTION 50 ML IV ONE (07:16)
[2020-01-27] MEDS ORDERED: MIDAZOLAM 2 MG/2 ML (VERSED) VIAL ONE (07:17)
[2020-01-27 07:25] VITALS: BP 151/70
[2020-01-27] MEDS ORDERED: LIDOCAINE JELLY 2% 6 ML SYRINGE ONE (07:37)
[2020-01-27 08:05] VITALS: BP 117/58
--- NOTE | 2020-01-27 08:09 | Pre-Op Note & Conscious Sedat ---
Pre-Operative Progress Note H&P Reviewed The H&P was reviewed, patient examined and no changes noted. Date H&P Reviewed: Jan 27, 2020 Time H&P Reviewed: 07:15 Conscious Sedation Pre-Proced ASA Score 2 For ASA 3 and 4: Consider anesthesia and medical clearance. Also, for patients with a history of failed moderate sedation consider anesthesia. Airway Lungs Heart ASA score ASA 1: a normal healthy patient ASA 2: a patient with a mild systemic disease (mid diabetes, controlled hypertension, obesity ASA 3: a patient with a severe systemic disease that limits activity (angina, COPD, prior Myocardial infarction) ASA 4: a patient with an incapacitating disease that is a constant threat to life (CHF, renal failure) ASA 5: a moribund patient not expected to survive 24 hrs. (ruptured aneurysm) ASA 6: a declared brain- patient whose organs are being harvested. For emergent operations, add the letter E after the classification Mallampati Classification Grade 1 Sedation Plan Analgesia, Amnesia, Plan communicated to team members, Discussed options with patient/fam, Discussed risks with patient/fam The patient is an appropriate candidate to undergo the planned procedure, sedation, and anesthesia. The patient immediately re-assessed prior to indication. OJSUÉ CALERO MD Jan 27, 2020 08:09
[2020-01-27 08:10] VITALS: BP 119/58
[2020-01-27 08:15] VITALS: BP_SYST 127; BP_SYST 133; BP_DIAS 59; BP_DIAS 61
[2020-01-27 08:45] VITALS: BP 147/65
[2020-01-27 09:00] VITALS: BP 147/65
--- NOTE | 2020-01-27 10:23 | Anesthesia-General Post-Op ---
MAC Patient Condition Mental Status/LOC: Same as Preop Cardiovascular: Satisfactory Nausea/Vomiting: Absent Respiratory: Satisfactory Pain: Controlled Complications: Absent Post Op Complications Complications None Follow Up Care/Instructions Patient Instructions None needed. Anesthesiology Discharge Order Discharge Order Patient is doing well, no complaints, stable vital signs, no apparent adverse anesthesia problems. No complications reported per nursing. ARI RAUSCH CRNA Jan 27, 2020 10:23
--- NOTE | 2020-01-27 11:21 | OPERATIVE REPORT ---
DATE OF SERVICE: COLONOSCOPY SUMMARY INDICATION FOR THE PROCEDURE: Left lower quadrant abdominal pain with weight loss. DESCRIPTION OF PROCEDURE: The patient was placed in the left lateral decubitus position. Prior to undergoing colonoscopy, a digital rectal evaluation was performed. Anal sphincter tone was normal and the perianal reflexes intact. No evidence for internal or external hemorrhoids were noted. No abnormalities were noted on digital inspection of the distal rectal vault and anal canal. The colonoscope was then inserted into the rectum and under direct visualization advanced to the cecum. The cecum was identified by identification of the ileocecal valve and cecal strap. Photographic documentation was obtained. Careful inspection was made as the colonoscope was withdrawn. FINDINGS: There was no evidence for internal hemorrhoids or external hemorrhoids and the rectum was unremarkable. Moderate severe diverticular disease with haustral hypertrophy was noted, but no overt evidence for diverticulitis confined to the sigmoid colon was present. The descending colon, splenic flexure, transverse colon, ascending colon, hepatic flexure and cecum were unremarkable. ASSESSMENT: Moderate to severe diverticular disease involving the sigmoid colon was present without evidence for diverticulitis. No other colonic abnormalities were appreciated. We will not be advocating future screening colonoscopy considering age and moderate severe diverticular disease. Job ID: [id number] DocumentID: [id number] Dictated Date: 01/27/2020 10:05:38 Tacking Machine Operator Date: 01/27/2020 11:20:46 Dictated By: JOSUÉ CALERO MD
== END 2020-01-27 09:07 | disposition home or self-care (01) ==
LOC: ENDO 07:07
PROVIDERS: ATTEND Internal Medicine
DX: K57.30 Diverticulosis of large intestine without perforation or abscess without bleeding (principal); R63.4 Abnormal weight loss; I10 Essential (primary) hypertension; E78.5 Hyperlipidemia, unspecified; Z79.899 Other long term (current) drug therapy; Z88.8 Allergy status to other drugs, medicaments and biological substances; Z88.0 Allergy status to penicillin; Z90.710 Acquired absence of both cervix and uterus

== ENCOUNTER → 2020-04-04 | Outpatient (CLI) | payer BC ==
[~2020-04-04] MED LIST changes: -LACTATED RINGERS 1,000 ML IV ONE
--- NOTE | 2020-04-04 17:55 | Diagnostic Imaging Report ---
HISTORY: Left lower leg and foot pain, no known injury. COMPARISON: None. TECHNIQUE: Two views of the left tibias/fibula. FINDINGS: No acute fracture or dislocation is seen in the left tibias/fibula. Alignment appears normal. Joint spaces are preserved. IMPRESSION: No acute osseous abnormality is seen in the left tibias/fibula. Dictated by: Dictated on workstation # [id number]
--- NOTE | 2020-04-04 19:02 | Diagnostic Imaging Report ---
EXAMINATION: Left foot radiographs, 3 views. COMPARISON: None. HISTORY: 79-year-old female, left lower leg and foot pain. FINDINGS: There is a hallux valgus deformity. There is degenerative type enthesopathy at the Achilles tendon insertion. There is no tibiotalar joint effusion. There is no identified acute fracture. There is no cortical or aggressive bone destruction. The joint spaces are well preserved. IMPRESSION: 1. Hallux valgus deformity. 2. Additional radiographic assessment at the level of the left foot is grossly unremarkable. Dictated by: Dictated on workstation # [id number]
== END ==
LOC: RAD 16:19
PROVIDERS: ATTEND Nurse Practitioner Family
DX: M20.12 Hallux valgus (acquired), left foot (principal); M79.662 Pain in left lower leg
CPT/HCPCS: 73590; 73630

== ENCOUNTER → 2020-04-17 | Outpatient (CLI) | payer BC, MEDICARE ==
--- NOTE | 2020-04-17 14:22 | Diagnostic Imaging Report ---
PROCEDURE: US left lower extremity venous. TECHNIQUE: Multiple Real-time grayscale images were obtained over the left lower extremity in various projections. Additional duplex Doppler and color Doppler images were also obtained. INDICATION: Left lower extremity pain. FINDINGS: There is no evidence of left lower extremity DVT. The left lower extremity deep venous system shows normal compressibility with normal response to augmentation and Valsalva. No fluid collection or mass is detected. IMPRESSION: No evidence of left lower extremity DVT. Dictated by: Dictated on workstation # [id number]
--- NOTE | 2020-04-17 14:48 | Diagnostic Imaging Report ---
INDICATION: Left lower extremity pain. Change in temperature. TECHNIQUE: Multiple Real-time grayscale sonographic images along with duplex Doppler evaluation was obtained of the left lower extremity arterial system. CORRELATION STUDY: None. FINDINGS: The major arteries of the left leg are patent to the level of the ankle. There is flow present in the dorsalis pedis and posterior tibial artery. There are triphasic and slightly dampened biphasic waveforms noted throughout the major arteries. There is no appreciable velocity change to suggest a focal area of stenosis. IMPRESSION: Patency of the left lower extremity arterial system. No findings to suggest significant flow limitations or stenosis. Dictated by: Dictated on workstation # [id number]
== END ==
LOC: RAD 12:50
PROVIDERS: ATTEND Nurse Practitioner Family
DX: M79.662 Pain in left lower leg (principal); R50.9 Fever, unspecified; Z20.828 Contact with and (suspected) exposure to other viral communicable diseases
CPT/HCPCS: 93926

== ENCOUNTER → 2020-12-18 | Outpatient (CLI) | payer BC, MEDICARE | LOC: LABNPT 06:18 | PROVIDERS: ATTEND Internal Medicine | DX: Z20.822 Contact with and (suspected) exposure to COVID-19 (principal) | CPT/HCPCS: 87635 ==

== ENCOUNTER 2021-01-02 14:01 | Outpatient (RCR) | payer BC, MEDICARE | END 2021-04-02 | disposition home or self-care (01) | LOC: CARD 14:01 | PROVIDERS: ATTEND Nurse Practitioner Family | DX: R00.2 Palpitations (principal) | CPT/HCPCS: 93005; 93225; 93226 ==

== ENCOUNTER → 2021-01-25 | Outpatient (CLI) | payer BC, MEDICARE | LOC: CARD 13:30 | PROVIDERS: ATTEND Internal Medicine | DX: I11.9 Hypertensive heart disease without heart failure (principal); I34.0 Nonrheumatic mitral (valve) insufficiency | CPT/HCPCS: 93306 ==

== ENCOUNTER → 2021-02-14 | Outpatient (CLI) | payer BC, MEDICARE ==
[~2021-02-14] MED LIST changes: +CATHETER FLUSH 10 ML SYR IV PRN; +REGADENOSON 0.4 MG/5 ML SYR (LEXISCAN) IV ONE
[2021-02-14 13:11] VITALS: BP 148/78
--- NOTE | 2021-02-14 18:49 | NUCLEAR STRESS TEST ---
REGADENOSON NUCLEAR STRESS Date of procedure: 02/14/2021. Primary care provider: Michael Alas MD Admitting physician: Yoshi Castellon Jr., MD. INDICATION: Abnormal ECG. BASELINE ELECTROCARDIOGRAM: Sinus rhythm with left atrial abnormality and left ventricular hypertrophy with repolarization abnormality. STRESS TEST PROCEDURE: The patient was administered 0.4 mg of intravenous Regadenoson. The resting heart rate was 66 bpm and the peak heart rate was 97 bpm. The resting blood pressure was 164/70 mmHg and the minimum blood pressure was 138/68 mmHg. This represents a normal heart rate and a normal blood pressure response to Regadenoson. The test was stopped due to the protocol. There was no chest discomfort during the test. There were premature ventricular complexes as isolated and couplet beats during the test. There were no significant stress induced electrocardiogram changes. NUCLEAR PROCEDURE: The patient was administered 10.4 mCi of intravenous technetium 99m Tetrofosmin at rest for the rest images. The patient was subsequently administered 31.7 mCi of intravenous technetium 99m Tetrofosmin at peak stress for the stress images. Following an appropriate wait after each injection, imaging was obtained. The images were subsequently processed and reformatted in the usual views. Gated imaging was obtained. The image quality was adequate but with gastrointestinal attenuation artifact. CT attenuation correction was used as a adjunct to standard imaging. Both the corrected and uncorrected images were reviewed for interpretation. NUCLEAR RESULTS: There was normal myocardial perfusion in all segments without evidence of infarction or ischemia. There was normal left ventricular chamber size with an end-diastolic volume of 30 mL and an end-systolic volume of 6 mL. There was no evidence of transient ischemic dilatation. The TID ratio was 1.02. There was normal wall motion in all segments with a calculated ejection fraction of 81%. IMPRESSION: 1. Normal heart rate and blood pressure response to regadenoson. 2. There was no chest discomfort or electrocardiogram changes during the test. 3. There were premature ventricular complexes as isolated and couplet beats during stress that resolved in recovery. 4. There was normal myocardial perfusion in all segments without evidence of infarction or ischemia. 5. There was normal wall motion in all segments with a calculated ejection fraction of 81%. Certain portions of this document may have been dictated utilizing voice recognition technology. Inherent to this technology, typographical and grammatical errors may exist. As much as I am diligent to identify and correct these mistakes, some errors may remain in the document. YOSHI CASTELLON JR, MD Feb 14, 2021 18:49
== END ==
LOC: CARD 12:15
PROVIDERS: ATTEND Internal Medicine Cardiovascular Disease
DX: R94.31 Abnormal electrocardiogram [ECG] [EKG] (principal)
CPT/HCPCS: 78452; 93017; A9502

== ENCOUNTER → 2021-02-26 | Outpatient (CLI) | payer BC, MEDICARE ==
[~2021-02-26] MED LIST changes: -CATHETER FLUSH 10 ML SYR IV PRN; -REGADENOSON 0.4 MG/5 ML SYR (LEXISCAN) IV ONE
--- NOTE | 2021-02-26 14:31 | Diagnostic Imaging Report ---
Indication: Routine screening. Comparison is made with prior mammogram from 04/14/2019 and 08/27/2016. 2-D and 3-D bilateral screening mammography was performed with CAD. Both breasts are heterogeneously dense, limiting the sensitivity of mammography. No mass or malignant-appearing microcalcifications are seen. Axillae are unremarkable. IMPRESSION: BI-RADS Category 1 No mammographic features suspicious for malignancy are identified. ACR BI-RADS Category 1: Negative. Result letter will be mailed to the patient. Note: At least 10% of breast cancer is not imaged by mammography. Dictated by: Dictated on workstation # [id number]
== END ==
LOC: RAD 12:13
PROVIDERS: ATTEND Internal Medicine
DX: Z12.31 Encounter for screening mammogram for malignant neoplasm of breast (principal)
CPT/HCPCS: 77063; 77067

== ENCOUNTER → 2021-08-29 | Outpatient (CLI) | payer MEDICARE ==
[~2021-08-29] MED LIST changes: -LEVO500T80 PO; +LEVO500T81 PO
== END ==
LOC: CARD 13:30
PROVIDERS: ATTEND Internal Medicine Cardiovascular Disease
DX: I47.2 Ventricular tachycardia (principal); I08.2 Rheumatic disorders of both aortic and tricuspid valves
CPT/HCPCS: 93306

== ENCOUNTER → 2022-09-01 | Outpatient (CLI) | payer MEDICARE ==
[~2022-09-01] MED LIST changes: +LEVO-55 PO; -LEVO500T81 PO
--- NOTE | 2022-09-01 16:51 | Diagnostic Imaging Report ---
PROCEDURE: CT chest without contrast. TECHNIQUE: Multiple contiguous axial images were obtained through the chest without the use of intravenous contrast. Auto Exposure Controls were utilized during the CT exam to meet ALARA standards for radiation dose reduction. DATE: September 01, 2022. COMPARISON: Chest radiographs November 11, 2017. CT chest August 14, 2017. INDICATION: 82-year-old female, followup thoracic aortic aneurysm. PROCEDURE: Axial noncontrasted CT images of the chest. Noncontrasted limits the evaluation of the mediastinum and vascular structures. FINDINGS: There is mild tree-in-bud nodularity in the right upper lobe on axial image 57. There is prior airspace consolidation in this distribution on August 14, 2017. There is also mild tree-in-bud nodularity in the right lower lobe on axial image 89 which is new since the prior CT chest. There are areas of tree-in-bud nodularity also present on the right lower lobe on axial image 75 which are at least partially present previously. There is a 3 mm left upper lobe pulmonary nodule on axial image 71. There is no lung mass. There is no additional focal airspace consolidation. There is no pneumothorax. There is no pleural effusion. The central airways are patent. The heart is not enlarged. There is no identified pericardial effusion. There are atherosclerotic calcifications. The ascending thoracic aorta measures up to 4.1 x 3.9 cm in diameter. This previously measured 3.8 x 3.8 cm in diameter on August 14, 2017. The descending thoracic aorta measures 2.8 x 2.7 cm in diameter and previously measured 2.6 x 2.5 cm in diameter at this level previously. There is no identified abnormally enlarged mediastinal or axillary lymph node meeting CT size criteria for adenopathy. Evaluation of the imaged portions of the upper abdomen is unremarkable. There is scoliosis. There are degenerative changes of the spine. There is no identified acute bony abnormality. IMPRESSION: 1. Ascending thoracic aortic aneurysm measuring up to 4.1 x 3.9 cm in diameter which is mildly increased in size since August 14, 2017. 2. Multifocal areas of tree-in-bud nodularity most likely relating to process spreading via endobronchial means which is most commonly an infectious bronchiolitis or aspiration. At least some of the areas of tree-in-bud nodularity are present previously. New areas of tree-in-bud nodularity are of uncertain exact acuity. Recommend correlation clinically for potential symptoms. Dictated by: Dictated on workstation # [id number]
== END ==
LOC: RAD 13:45
PROVIDERS: ATTEND Internal Medicine
DX: I71.20 Thoracic aortic aneurysm, without rupture, unspecified (principal); R91.1 Solitary pulmonary nodule
CPT/HCPCS: 71250